=== PATIENT | female | born 1955 | race African-American/Black ===

== ENCOUNTER 2019-08-29 20:06 | Emergency (ER) | payer MEDICAID ==
[~2019-08-29] VITALS: Ht 165.1 cm; Wt 156.5 kg
[~2019-08-29 20:06] MED LIST: ADVAIR 250-501 EACH INH; ALEVE220 M2 PO; AMLODIPINE BESYL5 MG ORAL; BACTRIM-DS1 EA ORAL; DIAZEPAM10 MG ORAL; FUROSEMIDE40 MG ORAL; HYDROCHLOROTHIA25 MG ORAL; HYDROCODON-ACE1 EA13 ORAL; METFORMIN HCL500 M1 ORAL; METOPROLOL SUC100 MG ORAL; NEURONTIN300 MG ORAL; PROAIR HFA8.5 GM INH; PROTONIX40 MG ORAL; SPIRIVA18 MCG INH
[2019-08-29] MEDS ORDERED: Nitroglycerin Subl 0.4mg tab SL PRN (20:15)
[2019-08-29] MEDS ORDERED: Albuterol/Ipratropium 3ml neb HHN ONE (20:15)
[2019-08-29 21:00] LABS: BASOPHILS % (AUTO) 1.6 % (0.0-2.0); EOSINOPHILS % (AUTO) 1.5 % (0.0-3.0); HEMATOCRIT 41.6 % (37.0-47.0); HEMOGLOBIN 12.7 G/DL (12.0-16.0); LYMPHOCYTES % (AUTO) 13.7 % (20.0-45.0); MEAN CORPUSCULAR VOLUME 87 FL (80-99); NEUTROPHILS % (AUTO) 76.3 % (45.0-75.0); PLATELET COUNT 191 K/UL (150-450); RED BLOOD COUNT 4.75 M/UL (4.20-5.40); RED CELL DISTRIBUTION WIDTH 15.8 % (11.6-14.8); WHITE BLOOD COUNT 10.8 K/UL (4.8-10.8)
[2019-08-29 21:08] VITALS: BP 140/62
--- NOTE | 2019-08-29 21:09 | Emergency Room Report ---
History of Present Illness General Chief Complaint: Dyspnea/Respdistress Source: Patient Present Illness HPI Patient is a 64-year-old female who presents after 2 days of increased difficulty with breathing. She had prior history of COPD as well as congestive heart failure. Had prior intubation. Patient reports taking diuretics. She states that she is been having increased difficulty with movement to her left lower extremity. This is been ongoing for several months. Patient had currently a smoker. She denies any chest discomfort at this time. She had prior history of hypertension. She is normally followed by Dr. Greene at [place]. Patient was brought in by EMS and was started on supplemental oxygen. She was noted to have diminished oxygen saturation at home. She sleeps with one pillow but has to sleep somewhat upright.Patient has been unable to ambulate for several months due to left lower extremity weakness. Allergies: Coded Allergies: CODEINE (Unverified Allergy, Intermediate, 08/29/19) Patient History Past Medical History: see triage record Now: No Reviewed Nursing Documentation: PMH: Agreed; PSxH: Agreed Nursing Documentation-PMH Hx Cardiac Problems: Yes Hx Hypertension: Yes Hx COPD: Yes Hx Diabetes: Yes Hx Cancer: No Hx Gastrointestinal Problems: No Hx Neurological Problems: No Review of Systems All Other Systems: negative except mentioned in HPI Physical Exam Vital Signs Date Time Temp Pulse Resp B/P (MAP) Pulse Ox O2 Delivery O2 Flow Rate FiO2 08/29/19 20:08 98.4 100 23 184/105 (131) 93 Nasal Cannula 4.0 Sp02 EP Interpretation: reviewed, normal General Appearance: normal inspection, alert, GCS 15, obese, Chronically Ill Head: atraumatic ENT: normal ENT inspection, hearing grossly normal, normal voice Neck: normal inspection, full range of motion, supple, no bony tend Respiratory: normal inspection, no retraction, no wheezing Cardiovascular #1: regular rate, rhythm, edema - 3+ Gastrointestinal: normal inspection, normal bowel sounds, non tender, soft, no guarding, no hernia Genitourinary: no CVA tenderness Musculoskeletal: normal inspection, back normal, normal range of motion Neurologic: alert, oriented x3, motor weakness - Left lower extremity weakness , responsive, speech normal Psychiatric: normal inspection, judgement/insight normal, mood/affect normal Skin: no rash Medical Decision Making Diagnostic Impression: Primary Impression: CHF (congestive heart failure) Additional Impressions: HTN (hypertension) DM (diabetes mellitus) ER Course Patient presented for shortness of breath. Differential diagnosis include was not limited to pneumonia, bronchitis, COPD, congestive heart failure among others. EKG interpreted by me showed sinus tachycardia with a rate of [address] changes and occasional PVCs patient was given IV Lasix as well as nitroglycerin due to likely heart failure. Chest x-ray was ordered. A Tuttle catheter was placed. Patient was noted to have some chronic weakness to her left lower extremity which is relatively recent onset but has been present for several months.Patient was given IV Rocephin for possible urinary infection. Dr. Basurto was contacted for [facility] and patient's case was discussed. Patient will be likely transferred for further evaluation and treatment of CHF. Labs Test 08/29/19 20:15 08/29/19 21:05 White Blood Count 10.8 K/UL (4.8-10.8) Red Blood Count 4.75 M/UL (4.20-5.40) Hemoglobin 12.7 G/DL (12.0-16.0) Hematocrit 41.6 % (37.0-47.0) Mean Corpuscular Volume 87 FL (80-99) Mean Corpuscular Hemoglobin 26.8 PG (27.0-31.0) Mean Corpuscular Hemoglobin Concent 30.6 G/DL (32.0-36.0) Red Cell Distribution Width 15.8 % (11.6-14.8) Platelet Count 191 K/UL (150-450) Mean Platelet Volume 6.4 FL (6.5-10.1) Neutrophils (%) (Auto) 76.3 % (45.0-75.0) Lymphocytes (%) (Auto) 13.7 % (20.0-45.0) Monocytes (%) (Auto) 7.0 % (1.0-10.0) Eosinophils (%) (Auto) 1.5 % (0.0-3.0) Basophils (%) (Auto) 1.6 % (0.0-2.0) Sodium Level 144 MMOL/L (136-145) Potassium Level 3.6 MMOL/L (3.5-5.1) Chloride Level 104 MMOL/L (98-107) Carbon Dioxide Level 35 MMOL/L (21-32) Anion Gap 5 mmol/L (5-15) Blood Urea Nitrogen 12 mg/dL (7-18) Creatinine 1.3 MG/DL (0.55-1.30) Estimat Glomerular Filtration Rate 50.3 mL/min (>60) Glucose Level 231 MG/DL (74-106) Lactic Acid Level 2.60 mmol/L (0.4-2.0) Calcium Level 9.3 MG/DL (8.5-10.1) Total Bilirubin 0.4 MG/DL (0.2-1.0) Aspartate Amino Transf (AST/SGOT) 11 U/L (15-37) Alanine Aminotransferase (ALT/SGPT) 14 U/L (12-78) Alkaline Phosphatase 136 U/L (46-116) Troponin I 0.103 ng/mL (0.000-0.056) Pro-B-Type Natriuretic Peptide 930 pg/mL (0-125) Total Protein 7.2 G/DL (6.4-8.2) Albumin 3.0 G/DL (3.4-5.0) Globulin 4.2 g/dL Albumin/Globulin Ratio 0.7 (1.0-2.7) Lipase 102 U/L (73-393) Urine Color Yellow Urine Appearance Clear Urine pH 6 (4.5-8.0) Urine Specific [place] 1.020 (1.005-1.035) Urine Protein 2+ (NEGATIVE) Urine Glucose (UA) 1+ (NEGATIVE) Urine Ketones 1+ (NEGATIVE) Urine Blood 3+ (NEGATIVE) Urine Nitrite Negative (NEGATIVE) Urine Bilirubin 1+ (NEGATIVE) Urine Ictotest Negative (NEGATIVE) Urine Urobilinogen 1 MG/DL (0.0-1.0) Urine Leukocyte Esterase 1+ (NEGATIVE) Urine RBC 2-4 /HPF (0 - 2) Urine WBC 2-4 /HPF (0 - 2) Urine Squamous Epithelial Cells None /LPF (NONE/OCC) Urine Bacteria Occasional /HPF (NONE) Urine Mucus Many /LPF (NONE/OCC) EKG Diagnostic Results Rate: tachycardiac Last Vital Signs Date Time Temp Pulse Resp B/P (MAP) Pulse Ox O2 Delivery O2 Flow Rate FiO2 08/29/19 20:46 188/92 08/29/19 20:08 98.4 100 23 93 Nasal Cannula 4.0 Status: improved Disposition: XFER SHT-TRM HOSP Condition: Stable Leonel Mukherjee MD Aug 29, 2019 21:09
[2019-08-29 21:11] LABS: ANION GAP 5 mmol/L (5-15); BLOOD UREA NITROGEN 12 mg/dL (7-18); CALCIUM 9.3 MG/DL (8.5-10.1); CARBON DIOXIDE 35 MMOL/L (21-32); CHLORIDE 104 MMOL/L (98-107); CREATININE 1.3 MG/DL (0.55-1.30); POTASSIUM 3.6 MMOL/L (3.5-5.1); SODIUM 144 MMOL/L (136-145)
[2019-08-29 21:16] LABS: APPEARANCE,URINE CLEAR; BILIRUBIN, URINE 1+ (NEGATIVE); COLOR,URINE YELLOW; GLUCOSE, URINE (UA) 1+ (NEGATIVE); KETONES,URINE 1+ (NEGATIVE); LEUKOCYTE ESTERASE ,URINE 1+ (NEGATIVE); NITRITE,URINE NEGATIVE (NEGATIVE); PH,URINE 6 (4.5-8.0); PROTEIN,URINE 2+ (NEGATIVE); UROBILINOGEN,URINE 1 MG/DL (0.0-1.0)
[2019-08-29 21:23] LABS: ALANINE AMINOTRANSFERASE 14 U/L (12-78); ALBUMIN/GLOBULIN RATIO 0.7 (1.0-2.7); ALKALINE PHOSPHATASE 136 U/L (46-116); ASPARTATE AMINO TRANSFERASE 11 U/L (15-37); BILIRUBIN,TOTAL 0.4 MG/DL (0.2-1.0)
[2019-08-29] MEDS ORDERED: cefTRIAXone 1 GM in NS 55 ML IVPB ONE (21:45)
[2019-08-29] MEDS ORDERED: Aspirin Baby 81mg ORAL ONE (21:45)
[2019-08-29 22:30] VITALS: BP 166/70
[2019-08-30 00:35] VITALS: BP 147/72
--- NOTE | 2019-08-30 14:29 | Diagnostic Imaging Report ---
Indication: Shortness of breath Technique: One view of the chest Comparison: 06/04/2015 Findings: Body habitus limits evaluation. The heart is enlarged. There is bilateral interstitial edema diffusely. No definite effusions. Impression: Cardiomegaly Bilateral interstitial edema
== END 2019-08-30 00:35 | disposition short-term general hospital (02) ==
LOC: EDBD 20:06 → EMR 20:20
DX: I50.9 Heart failure, unspecified (principal); I10 Essential (primary) hypertension; E11.9 Type 2 diabetes mellitus without complications; Z88.5 Allergy status to narcotic agent; F17.200 Nicotine dependence, unspecified, uncomplicated
CPT/HCPCS: 36415; 51702; 71045; 80053; 81001; 83605; 83690; 83880; 84484; 85025; 87040; 93005; 94640; 96365; 96375; J0696; J1940; Z7502; 99285; J7620